=== PATIENT | male | born 1975 | race Hispanic/Latino ===

== ENCOUNTER 2019-05-30 07:13 | Day surgery (SDC) | payer OTHER ==
[~2019-05-30 07:13] MED LIST: ceFAZolin/Water 2 GM/20 ML 2 GM/20 ML SYRINGE IV NR
[2019-05-30] MEDS ORDERED: LACTATED RINGERS 1,000 ML ONE (07:54)
--- NOTE | 2019-05-30 08:04 | Anesthesia Consultation ---
Anesthesia Consult and Med Hx Date of service: 05/30/19 - Airway Anesthetic Teeth Evaluation: Good ROM Head & Neck: Adequate Mental/Hyoid Distance: Adequate Mallampati Class: Class II Intubation Access Assessment: Good - Pulmonary Exam CTA: Yes - Cardiac Exam Cardiac Exam: RRR - Pre-Operative Health Status ASA Pre-Surgery Classification: ASA2 Proposed Anesthetic Plan: General - Pulmonary Hx Smoking: Yes (FOR AT LEAST 20YRS; STOPPED 2 WKS AGO FOR SX) - Central Nervous System Hx Psychiatric Problems: No - Other Systems Hx Alcohol Use: No Hx Substance Use: No Hx Cancer: No
[2019-05-30] MEDS ORDERED: HYDROmorphone 1 MG/1 ML INJ IV PRN (08:05)
[2019-05-30] MEDS ORDERED: ONDANSETRON 4 MG/2 ML INJ IV PRN (08:05)
--- NOTE | 2019-05-30 08:05 | Anesthesia Day of Surgery ---
Anesthesia Day of Surgery - Day of Surgery Patient Examined: Yes Patient H&P Reviewed: Yes Patient is NPO: Yes
[2019-05-30] MEDS ORDERED: LACTATED RINGERS 1,000 ML IV SCH (09:00)
[2019-05-30] MEDS ORDERED: MIDAZOLAM 2 MG/2 ML INJ IV NR (09:00)
[2019-05-30] MEDS ORDERED: BUPIVACAINE/PF (0.25%) 2.5 MG/ML 30 ML VIAL INFILTRATI ONE ×2 (10:27→11:34)
[2019-05-30] MEDS ORDERED: LIDOCAINE (1%) 10 MG/1 ML VIAL 20 ML MDV ONE (10:27)
[2019-05-30] MEDS ORDERED: LIDOCAINE MPF (2%) 20 MG/1 ML VIAL 5 ML ONE (10:32)
[2019-05-30] MEDS ORDERED: PROPOFOL 200 MG/20 ML VIAL IV ONE (10:32)
[2019-05-30] MEDS ORDERED: fentaNYL 100 MCG/2 ML INJ ONE (10:53)
[2019-05-30] MEDS ORDERED: ONDANSETRON 4 MG/2 ML INJ ONE (11:17)
[2019-05-30] MEDS ORDERED: KETOROLAC 30 MG/1 ML INJ ONE (11:17)
[2019-05-30] MEDS ORDERED: dexAMETHasone 20 MG/5 ML VIAL ONE (11:17)
[2019-05-30] MEDS ORDERED: PHENYLEPHRINE/NS 1,000 MCG/10 ML SYRINGE (OR USE) IV ONE (11:30)
[2019-05-30] MEDS ORDERED: LIDOCAINE (1%) 10 MG/1 ML VIAL 20 ML MDV INFILTRATI ONE (11:34)
[2019-05-30] MEDS ORDERED: SODIUM CHLORIDE 0.9% IRR 1,500 ML BOTTLE IR ONE (11:34)
--- NOTE | 2019-05-30 11:46 | Short Stay Summary ---
Short Stay Documentation Date of service: 05/30/19 - History Principal diagnosis: soft tissue mass left lower back and flank H&P: obtained from office - Allergies and Medications Current Medications: Allergies No Known Allergies Allergy (Verified 05/26/19 14:24) Home Medications Medication Instructions Recorded Confirmed Last Taken Type No Known Home Medications [No 05/26/19 05/26/19 Unknown History Reported Home Medications] Active Medications Hydromorphone HCl (Dilaudid) 0.5 mg IV Q10MIN PRN PRN Reason: Pain , Severe (7-10) Stop: 05/30/19 20:00 Cefazolin Sodium (Ancef/Sterile Water 2 Gm/20 Ml) 2 gm in 20 mls @ 40 mls/hr IV PREOP NR; Protocol Stop: 05/30/19 23:00 Lactated Ringer's (Lactated Ringers) 1,000 mls @ 100 mls/hr IV DIRECT RODDY Midazolam HCl (Versed) 2 mg IV PREOP NR Stop: 05/30/19 23:59 Ondansetron HCl (Zofran) 4 mg IV ONCE PRN PRN Reason: Nausea And Vomiting Stop: 05/30/19 13:00 - Brief post op/procedure progress note Date of procedure: 05/30/19 Pre-op diagnosis: soft tissue masses left lower back and flank Post-op diagnosis: other (soft tissue mass left torso) Procedure: excision soft tissue masses L torso Anesthesia: GETA, local Findings: 4 soft tissue masses consistent with lipomas 1. L lower back measured 1.5 cm 2. L mid axillary line (lower abdomen) - 2 adjacent masses measuring 3 cm total 3. L lower chest area - 1 cm Surgeon: RUBIN VIRK Estimated blood loss: minimal Pathology: list (1. soft tissue mass left lower chest, 2. soft tissue mass left mid axillary line, 3. soft tissue mass left lower back) Specimen disposition: to lab Condition: stable - Hospital course Hospital course: Pt observed in PACU and discharged to home in stable condition. - Disposition Condition at discharge: Good Disposition: [id number] TO HOME OR SELFCARE Short Stay Discharge Plan Activity: no restrictions Diet: regular Wound: open to air, per your surgeon's advice Additional Instructions: SEE PRINTED DISCHARGE PAPERWORK Follow up with: RYDER DIETZ MD [Primary Care Provider] - 7 Days RUBIN VIRK DO [Staff Physician] - 14 Days Prescriptions: HYDROcodone/APAP 5-325 [[place] 5/325] 1 each PO Q6HR PRN #10 tablet PRN Reason: Pain , Severe (7-10)
[2019-05-30 13:33] VITALS: BP 109/71
--- NOTE | 2019-05-30 18:55 | Post Anesthesia Evaluation ---
- Post Anesthesia Evaluation Patient Participated: Yes Airway Patent: Yes Stable Respiratory Function: Yes Nausea/Vomiting: No Temp > 96.8F: Yes Pain Manageable: Yes Adequeate Hydration: Yes Anesthesia Complications: No Block Receding Appropriately: Not Applicable Patient on Ventilator: No
--- NOTE | 2019-05-30 22:52 | Operative Report ---
POSTOPERATIVE DIAGNOSIS: Soft tissue mass of the left lower back and flank. POSTOPERATIVE DIAGNOSIS: Soft tissue mass of the left torso. PROCEDURE: Excision of soft tissue masses, left torso. ANESTHESIA: General endotracheal anesthesia, local. FINDINGS: 1. Soft tissue masses consistent with lipoma. 2. Left lower back measured 1.5 cm. 3. Left midaxillary line (lower abdomen) 2 adjacent masses measuring 3 cm total. 4. Left lower chest area, 1 cm. SURGEON: Annie Smith DO ESTIMATED BLOOD LOSS: Minimal. PATHOLOGY: 1. Soft tissue mass, left lower chest. 2. Soft tissue mass of the left mid axillary line. 3. Soft tissue mass, left lower back. SPECIMEN DISPOSITION: To lab. CONDITION ON DISCHARGE: The patient is stable to PACU. HISTORY OF PRESENT ILLNESS AND INDICATION: The patient is a 44-year-old male who presented to the office with complaints of soft tissue growth, particularly in the left flank and lower back area. He stated that these masses were growing in size and had become a little uncomfortable. It was recommended that they be excised. All risks, benefits, alternatives to surgery were discussed with the patient and questions answered. Consent was obtained. On the day of surgery, the patient presented and also complained of a new mass that he palpated in the left lower chest area and did give consent to excise this as well. PROCEDURE IN DETAIL: The patient was identified in the preoperative area and taken back to the operating room and placed on the operating table in supine position. After anesthesia was induced, he was placed in left lateral decubitus position and secured using a beanbag. All bony prominences were padded appropriately. The left back and torso were prepped and draped in the usual sterile fashion. Timeout was performed. Local anesthetic was infiltrated at all skin incision sites prior to incision. I first started by excising the left lower back mass. Local anesthetic was infiltrated into the skin and subcutaneous tissue prior to incision. An incision was made over the area of the mass using 15 blade and dissection carried down through skin and subcutaneous tissue using Bovie electrocautery. Once the mass was encountered, circumferentially dissected free from the surrounding tissue using combination of blunt dissection and electrocautery. Once it was circumferentially dissected, it was removed from the wound and passed off table as specimen. A similar incision was made in the left mid axillary line in the lower abdominal flank area and in the left lower chest area to excise the other masses. Please see findings above for measurements of each mass. Once each mass was excised it was passed off the table as a specimen and labeled according to location from which it was excised. The wounds were then irrigated and hemostasis carefully ensured. All the incisions were then closed all in the same fashion with the deep dermal layer closed with interrupted 3-0 Vicryl sutures and the skin closed with interrupted 4-0 Monocryl subcuticular stitches. The skin glue was applied to all 3 incisions. At the end of the case, all sponge, instrument counts, sharp counts were correct x 2. The patient was awoken from anesthesia and extubated and taken to PACU in stable condition. JOB# [id number] EDDIE/SHAHRZAD DILLARD
== END 2019-05-30 07:14 | disposition home or self-care (01) ==
LOC: OR 07:13
PROVIDERS: ATTEND Surgery
DX: R22.2 Localized swelling, mass and lump, trunk (principal); D17.1 Benign lipomatous neoplasm of skin and subcutaneous tissue of trunk; D17.79 Benign lipomatous neoplasm of other sites; M79.89 Other specified soft tissue disorders; F17.210 Nicotine dependence, cigarettes, uncomplicated; Z91.040 Latex allergy status; Z79.899 Other long term (current) drug therapy; Z98.890 Other specified postprocedural states
CPT/HCPCS: 21555; 21930; 21931; 88304; J1100; J1885; J2370; J2405; J2704; J3010; J7120; 88307